=== PATIENT | female | born 1965 | race Caucasian/White ===

== ENCOUNTER → 2017-02-27 | Outpatient (CLI) | payer OTHER ==
[~2017-02-27] MED LIST: APIX5TAB PO; HYDR25TA6 PO; LISI40TA PO; LOVA10TA PO; LOVA20TA2 PO; METF10002 PO; PREG150C PO
[2017-02-27 13:01] LABS: BLOOD UREA NITROGEN 13 mg/dL (7-18)
[2017-02-27 13:04] LABS: ASPARTATE AMINO TRANSFERASE 16 U/L (15-37)
== END | disposition home or self-care (01) ==
LOC: STAR 11:40
PROVIDERS: ATTEND Orthopaedic Surgery
DX: Z01.810 Encounter for preprocedural cardiovascular examination (principal); M75.121 Complete rotator cuff tear or rupture of right shoulder, not specified as traumatic; M75.51 Bursitis of right shoulder; M75.21 Bicipital tendinitis, right shoulder
CPT/HCPCS: 36415; 80053; 93005

== ENCOUNTER 2017-03-05 12:52 | Day surgery (SDC) | payer OTHER ==
[~2017-03-05] VITALS: Ht 165.1 cm; Wt 155.0 kg
[~2017-03-05 12:52] MED LIST changes: +BUPIVACAINE/PF 0.25% ONE
[2017-03-05] MEDS ORDERED: LACTATED RINGERS 1,000 ML IV SCH (13:26)
[2017-03-05] MEDS ORDERED: GABAPENTIN 300 MG CAPSULE PO ONE (14:30)
[2017-03-05] MEDS ORDERED: ACETAMINOPHEN 500 MG TABLET PO ONE (14:30)
[2017-03-05] MEDS ORDERED: MIDAZOLAM 1 MG/ML, 2ML ONE (14:42)
[2017-03-05] MEDS ORDERED: FENTANYL PF 100 MCG/2ML ONE ×2 (14:43→17:50)
[2017-03-05] MEDS ORDERED: KETAMINE 10 MG/ML, 20ML ONE (14:48)
[2017-03-05] MEDS ORDERED: DEXAMETHASONE 4 MG/ML, 1ML ONE (15:55)
[2017-03-05] MEDS ORDERED: ROCURONIUM 10 MG/ML ONE (15:55)
[2017-03-05] MEDS ORDERED: EPHEDRINE 50 MG/ML, 1ML ONE (15:55)
[2017-03-05] MEDS ORDERED: PROPOFOL 10 MG/ML, 20ML ONE (15:55)
[2017-03-05] MEDS ORDERED: CEFAZOLIN 1,000 MG ONE (15:55)
[2017-03-05] MEDS ORDERED: SUCCINYLCHOLINE 20 MG/ML, 10ML ONE (15:55)
[2017-03-05] MEDS ORDERED: ONDANSETRON 2MG/ML, 2ML ONE (15:55)
[2017-03-05] MEDS ORDERED: PHENYLEPHRINE 10 MG/ML ONE (15:55)
[2017-03-05] MEDS ORDERED: LIDOCAINE 1%-EPI 1:100K, 30ML INFIL ONE (16:26)
[2017-03-05] MEDS ORDERED: ACETAMINOPHEN 325 MG TABLET PO PRN (17:00)
[2017-03-05] MEDS ORDERED: FENTANYL PF 100 MCG/2ML IV PRN (17:00)
[2017-03-05] MEDS ORDERED: MEPERIDINE/PF 25MG/0.5ML IVPush PRN (17:00)
[2017-03-05] MEDS ORDERED: PROMETHAZINE 25 MG/ML, 1ML IV PRN (17:00)
[2017-03-05] MEDS ORDERED: HYDROmorphone 1 MG/ML, 1ML IV PRN (17:00)
[2017-03-05] MEDS ORDERED: OXYcodone 5 MG/5 ML ORAL.SOL UDC PO PRN (17:00)
[2017-03-05] MEDS ORDERED: ALBUTEROL SULFATE 2.5 MG/3 ML NPPB PRN (17:00)
[2017-03-05] MEDS ORDERED: ACETAMINOPHEN 325 MG TABLET ONE (17:49)
[2017-03-05] MEDS ORDERED: ACETAMINOPHEN 650 MG/20.3 ML UDC ONE (17:49)
[2017-03-05] MEDS ORDERED: OXYcodone 5 MG/5 ML ORAL.SOL UDC ONE (17:50)
[2017-03-05] MEDS ORDERED: ALBUTEROL/IPRATROPIUM 2.5MG/0.5MG, 3 ML ONE (17:53)
== END 2017-03-05 20:23 | disposition home or self-care (01) ==
LOC: OUT 12:52
PROVIDERS: ATTEND Orthopaedic Surgery
DX: S46.011A Strain of muscle(s) and tendon(s) of the rotator cuff of right shoulder, initial encounter (principal); S43.431A Superior glenoid labrum lesion of right shoulder, initial encounter; M75.51 Bursitis of right shoulder; M65.811 Other synovitis and tenosynovitis, right shoulder; S46.211A Strain of muscle, fascia and tendon of other parts of biceps, right arm, initial encounter; E66.01 Morbid (severe) obesity due to excess calories; Z68.43 Body mass index [BMI] 50.0-59.9, adult; Z86.718 Personal history of other venous thrombosis and embolism; I10 Essential (primary) hypertension; E78.5 Hyperlipidemia, unspecified; E11.9 Type 2 diabetes mellitus without complications; Z86.711 Personal history of pulmonary embolism; M19.90 Unspecified osteoarthritis, unspecified site; X58.XXXA Exposure to other specified factors, initial encounter; Y93.29 Activity, other involving ice and snow; Y92.9 Unspecified place or not applicable; Y99.9 Unspecified external cause status
CPT/HCPCS: 29823; 29826; 29827; 82962; 94640; J0330; J0690; J1100; J2250; J2370; J2405; J2704; J3490; J7120; J3010; J7613

== ENCOUNTER → 2017-10-12 | Outpatient (CLI) | payer OTHER ==
[~2017-10-12] MED LIST changes: -BUPIVACAINE/PF 0.25% ONE
== END | disposition home or self-care (01) ==
LOC: CFH 07:31
PROVIDERS: ATTEND Specialist
DX: Z12.31 Encounter for screening mammogram for malignant neoplasm of breast (principal)
CPT/HCPCS: 77063; G0202

== ENCOUNTER 2018-05-07 14:29 | Day surgery (SDC) | payer OTHER ==
[2018-05-06 09:43] LABS: ALANINE AMINOTRANSFERASE 64 U/L (12-78); ALBUMIN 4.1 g/dL (3.4-5.0); ANION GAP 7 mmol/L (5-15); CALCIUM 9.2 mg/dL (8.5-10.1); CHLORIDE 98 mmol/L (98-107); CREATININE 1.48 mg/dL (0.55-1.02)
[2018-05-06 09:46] LABS: ALKALINE PHOSPHATASE 70 U/L (45-117); BILIRUBIN,TOTAL 0.7 mg/dL (0.2-1.0); TOTAL PROTEIN 7.2 g/dL (6.4-8.2)
[~2018-05-07] VITALS: Ht 160 cm; Wt 134.0 kg
[~2018-05-07 14:29] MED LIST changes: +CEFAZOLIN 1,000 MG ONE; +FENTANYL PF 100 MCG/2ML ONE; +GLYCOPYRROLATE 0.4 MG/2 ML, 2ML ONE; +MIDAZOLAM 1 MG/ML, 2ML ONE; +NEOSTIGMINE 1 MG/ML, 10ML ONE; +PROPOFOL 10 MG/ML, 20ML ONE; +ROCURONIUM 10MG/ML,5ML ONE; +SITA1TAB5 PO; +WATER-INJECTION,STERILE 10 ML IV ONE
[2018-05-07] MEDS ORDERED: PROTAMINE SULFATE 10 MG/ML, 5ML ONE (14:57)
[2018-05-07] MEDS ORDERED: BUPIVACAINE 0.25% ONE (14:57)
[2018-05-07] MEDS ORDERED: HEPARIN 1,000 UNITS/ML, 10ML ONE (14:58)
[2018-05-07] MEDS ORDERED: LIDOCAINE/PF 1%, 30ML ONE (14:58)
[2018-05-07] MEDS ORDERED: THROMBIN 5,000 UNIT VIAL TP ONE (14:58)
[2018-05-07] MEDS ORDERED: LACTATED RINGERS 1,000 ML IV SCH (14:59)
[2018-05-07] MEDS ORDERED: SCOPOLAMINE PATCH, 1.5MG PATCH.TD72 TD ONE (15:00)
[2018-05-07] MEDS ORDERED: ONDANSETRON ODT 8 MG PO ONE (15:00)
[2018-05-07 15:03] VITALS: BP 123/81
[2018-05-07] MEDS ORDERED: hydrALAzine 20 MG/ML, 1ML IV PRN (15:30)
[2018-05-07] MEDS ORDERED: PROMETHAZINE 25 MG SUPP PR PRN (15:30)
[2018-05-07] MEDS ORDERED: ONDANSETRON ODT 8 MG PO PRN (15:30)
[2018-05-07] MEDS ORDERED: OXYcodone 5 MG/5 ML ORAL.SOL UDC PO PRN (15:30)
[2018-05-07] MEDS ORDERED: LABETALOL 5MG/ML, 20ML IV PRN (15:30)
[2018-05-07] MEDS ORDERED: MORPHINE SULFATE 4 MG/ML, 1ML IVPush PRN (15:30)
[2018-05-07] MEDS ORDERED: PROMETHAZINE 25 MG/ML, 1ML IV PRN (15:30)
[2018-05-07] MEDS ORDERED: FENTANYL PF 100 MCG/2ML IV PRN (15:30)
[2018-05-07] MEDS ORDERED: HYDROmorphone 1 MG/ML, 1ML IV PRN (15:30)
[2018-05-07] MEDS ORDERED: PROMETHAZINE 12.5 MG SUPP PR PRN (15:30)
[2018-05-07] MEDS ORDERED: MEPERIDINE/PF 25MG/0.5ML IVPush PRN (15:30)
[2018-05-07] MEDS ORDERED: BUPIVACAINE/PF-EPI 0.25% 1:200K INFIL ONE (15:48)
[2018-05-07] MEDS ORDERED: VISIPAQUE 320MG/ML, 50ML BOTTLE ONE (16:13)
== END 2018-05-07 17:45 | disposition home or self-care (01) ==
LOC: OR 14:29
PROVIDERS: ATTEND Surgery
DX: Z46.89 Encounter for fitting and adjustment of other specified devices (principal); E66.01 Morbid (severe) obesity due to excess calories; Z68.43 Body mass index [BMI] 50.0-59.9, adult; G47.30 Sleep apnea, unspecified; I10 Essential (primary) hypertension; E11.9 Type 2 diabetes mellitus without complications; E78.5 Hyperlipidemia, unspecified; Z79.01 Long term (current) use of anticoagulants; Z86.718 Personal history of other venous thrombosis and embolism; Z87.39 Personal history of other diseases of the musculoskeletal system and connective tissue; Z98.890 Other specified postprocedural states
CPT/HCPCS: 36415; 37191; 74018; 76000; 80053; 82962; 93005; C1880; J0690; J1644; J2250; J2704; J2710; J3010; J3490; Q0162; Q9967; J2720

== ENCOUNTER 2019-10-12 11:57 | Day surgery (SDC) | payer OTHER ==
[~2019-10-12] VITALS: Ht 162.6 cm; Wt 82.6 kg
[~2019-10-12 11:57] MED LIST changes: +ACETAMINOPHEN 325 MG TABLET PO PRN; -CEFAZOLIN 1,000 MG ONE; -FENTANYL PF 100 MCG/2ML ONE; -GLYCOPYRROLATE 0.4 MG/2 ML, 2ML ONE; +HYDROCHLOROTHIAZIDE 25 MG TABLET PO SCH; +HYDROmorphone 1 MG/ML, 1ML INJ IM PRN; +KETOROLAC 30 MG/1 ML IVPush SCH; +LISINOPRIL 40 MG TABLET PO SCH; -MIDAZOLAM 1 MG/ML, 2ML ONE; -NEOSTIGMINE 1 MG/ML, 10ML ONE; +ONDANSETRON 2MG/ML, 2ML IVPush PRN; +OXYcodone 5 MG/5 ML ORAL.SOL UDC PO PRN; +PLEASE ENTER HEIGHT AND WEIGHT MC SCH; +PREGABALIN 150 MG CAPSULE PO SCH; +PROMETHAZINE 25 MG/ML, 1ML IM PRN; -PROPOFOL 10 MG/ML, 20ML ONE; -ROCURONIUM 10MG/ML,5ML ONE; -WATER-INJECTION,STERILE 10 ML IV ONE
[2019-10-12] MEDS ORDERED: MIDAZOLAM 1 MG/ML, 2ML ONE (12:01)
[2019-10-12] MEDS ORDERED: FENTANYL PF 100 MCG/2ML ONE ×2 (12:02→13:18)
[2019-10-12] MEDS ORDERED: PROPOFOL 10 MG/ML, 20ML ONE (12:12)
[2019-10-12] MEDS ORDERED: BUPIVACAINE/PF 0.25% ONE (12:12)
[2019-10-12] MEDS ORDERED: LIDOCAINE-MPF 2% ,5ML ONE (12:12)
[2019-10-12 12:16] VITALS: BP 130/85
[2019-10-12] MEDS ORDERED: LACTATED RINGERS 1,000 ML IV SCH (12:18)
[2019-10-12] MEDS ORDERED: TRAM50TA2 PO (12:34)
[2019-10-12] MEDS ORDERED: OXYcodone 5 MG/5 ML ORAL.SOL UDC ONE (13:18)
[2019-10-12] MEDS ORDERED: ACETAMINOPHEN 650 MG/20.3 ML UDC ONE (13:18)
[2019-10-12] MEDS: FENTANYL PF 100 MCG/2ML IV PRN ×2 (13:20→13:25)
[2019-10-12] MEDS ORDERED: KETOROLAC 60 MG/2 ML ONE (13:25)
[2019-10-12] MEDS ORDERED: DIAZEPAM 5 MG/ML, 2ML ONE (13:27)
[2019-10-12] MEDS ORDERED: HYDROmorphone 2 MG/ML, 1ML IVPush PRN (13:30)
[2019-10-12] MEDS ORDERED: hydrALAzine 20 MG/ML, 1ML IV PRN (13:30)
[2019-10-12] MEDS ORDERED: MIDAZOLAM 1 MG/ML, 2ML IV PRN (13:30)
[2019-10-12] MEDS ORDERED: METOPROLOL 1 MG/ML, 5ML IV PRN (13:30)
[2019-10-12] MEDS ORDERED: ACETAMINOPHEN 325 MG TABLET PO PRN (13:30)
[2019-10-12] MEDS ORDERED: ONDANSETRON 2MG/ML, 2ML IV PRN (13:30)
[2019-10-12] MEDS ORDERED: DIAZEPAM 5 MG/ML, 2ML IVPush PRN (13:30)
[2019-10-12] MEDS ORDERED: OXYcodone 5 MG/5 ML ORAL.SOL UDC PO PRN (13:30)
[2019-10-12] MEDS ORDERED: LOVASTATIN 20 MG TABLET PO SCH (21:00)
== END 2019-10-12 14:45 | disposition home or self-care (01) ==
LOC: OUT 11:57
PROVIDERS: ATTEND Orthopaedic Surgery
DX: T84.82XA Fibrosis due to internal orthopedic prosthetic devices, implants and grafts, initial encounter (principal); I10 Essential (primary) hypertension; E11.9 Type 2 diabetes mellitus without complications; E78.5 Hyperlipidemia, unspecified; Z79.01 Long term (current) use of anticoagulants; Z79.891 Long term (current) use of opiate analgesic; Z79.84 Long term (current) use of oral hypoglycemic drugs; Z79.899 Other long term (current) drug therapy; Z86.718 Personal history of other venous thrombosis and embolism; Z86.711 Personal history of pulmonary embolism; Z86.73 Personal history of transient ischemic attack (TIA), and cerebral infarction without residual deficits; Z82.61 Family history of arthritis; Z82.49 Family history of ischemic heart disease and other diseases of the circulatory system; Y83.8 Other surgical procedures as the cause of abnormal reaction of the patient, or of later complication, without mention of misadventure at the time of the procedure
CPT/HCPCS: 27570; 64447; J1885; J2250; J2704; J3010; J3360; J3490; J7120